=== PATIENT | female | born 1995 | race Caucasian/White ===

== ENCOUNTER 2017-07-26 10:14 | Day surgery (SDC) | payer OTHER ==
[~2017-07-26] VITALS: Ht 160 cm; Wt 73.7 kg
[~2017-07-26 10:14] MED LIST: BENZ100A PO; CALCA500CH PO; CEPH500 PO; CIPR500 PO; CODACE30 PO; CYCL10 PO; EPIPEN 2-P0.3 MG/0.3; HYDACE5 PO; IBUP600 PO; IBUP800 PO; LAMO25; OXYACE5T PO; PENVK500 PO; PHENA100 PO; PRAZ1; PROCODE120 PO; PROM25 PO; Percocet 5-3251 EACH PO; QUET100; SULTRIDS PO; TRAM50 PO; Verotin-Gr Cap1 EACH PO; [UNRECOGNIZED DRUG - OTHER]
== END 2017-07-26 13:50 | disposition home or self-care (01) ==
LOC: ORSCSDS 10:14
PROVIDERS: Obstetrics & Gynecology
PROC: 0UT74ZZ Resection of Bilateral Fallopian Tubes, Percutaneous Endoscopic Approach (ICD-10-PCS; principal; 2017-07-26 11:30)
DX: Z30.2 Encounter for sterilization (principal); N80.3 Endometriosis of pelvic peritoneum; F41.8 Other specified anxiety disorders; Z79.899 Other long term (current) drug therapy
CPT/HCPCS: 88302; J0171; J0690; J1100; J1885; J2250; J2405; J2710; J3010; J7120

== ENCOUNTER 2019-08-31 02:07 | Emergency (ER) | payer OTHER ==
[~2019-08-31] VITALS: Ht 160 cm; Wt 72.6 kg
[~2019-08-31 02:07] MED LIST changes: +Norco 5-325 Ta1 EACH PO; +ONDA4ODT MM; +Pyridium100 MG PO
[2019-08-31] MEDS ORDERED: Veetids 500500 MG PO (04:11)
== END 2019-08-31 04:26 | disposition home or self-care (01) ==
LOC: ER 02:07
DX: K03.81 Cracked tooth (principal); F17.200 Nicotine dependence, unspecified, uncomplicated; Z91.040 Latex allergy status; Z91.030 Bee allergy status
CPT/HCPCS: 96374; 99282-25; J1885

== ENCOUNTER → 2020-08-08 | Outpatient (CLI) | payer OTHER ==
[~2020-08-08] MED LIST changes: +Veetids 500500 MG PO
[2020-08-08 16:43] LABS: BASOPHILS ABSOLUTE AUTO 0.03 K/mm3 (0.00-0.23); BASOPHILS PERCENT AUTO 0 % (0-2); EOSINOPHILS ABSOLUTE AUTO 0.03 K/mm3 (0.00-0.68); EOSINOPHILS PERCENT AUTO 0 % (0-6); Hematocrit 42.4 % (33.0-51.0); Hemoglobin 14.6 g/dL (11.5-16.0); IMMATURE GRAN ABSOLUTE AUTO 0.04 K/mm3 (0.00-0.10); IMMATURE GRAN PERCENT AUTO 0 % (0-1); LYMPHOCYTES ABSOLUTE AUTO 1.24 K/mm3 (0.84-5.20); LYMPHOCYTES PERCENT AUTO 11 % (21-46); MONOCYTES ABSOLUTE AUTO 1.09 K/mm3 (0.16-1.47); MONOCYTES PERCENT AUTO 10 % (4-13); Mean Corpuscular HGB 31.5 pg (26.0-34.0); Mean Corpuscular HGB Conc 34.4 g/dL (31.5-36.5); Mean Corpuscular Volume 92 fL (80-100); Mean Platelet Volume 11.8 fL (9.1-12.4); NEUTROPHILS ABSOLUTE AUTO 9.06 K/mm3 (1.96-9.15); NEUTROPHILS PERCENT AUTO 79 % (41-73); Platelet Count 180 K/mm3 (150-400); RDW Standard Deviation 39.9 fL (35.1-46.3); Red Blood Cell Count 4.63 M/mm3 (3.80-5.20); White Blood Cell Count 11.49 K/mm3 (4.00-11.30)
[2020-08-08 16:53] LABS: Alanine Aminotransfer (ALT/SGP 21 U/L (12-78); Albumin, Blood 4.2 g/dL (3.4-5.0); Alk Phos 53 U/L (40-126); Anion Gap 12 mmol/L (6-16); Aspartate Aminotrans (AST/SGOT 14 U/L (12-37); Bilirubin, Total 0.8 mg/dL (0.1-1.0); Blood Urea Nitrogen 8 mg/dL (8-24); Bun/Creatinine Ratio 9.5 (12.0-20.0); CO2, Blood 26 mmol/L (21-32); Calcium, Blood 9.5 mg/dL (8.5-10.1); Chloride, Blood 103 mmol/L (98-108); Creatinine, Blood 0.84 mg/dL (0.40-1.00); Globulin, Blood 4.2 g/dL (2.2-4.0); Glomerular Filtration Rate >60 (60-); Glucose, Blood 111 mg/dL (70-99); Potassium, Blood 3.3 mmol/L (3.5-5.5); Sodium, Blood 141 mmol/L (136-145); Total Protein, Blood 8.4 g/dL (6.4-8.2)
== END | disposition home or self-care (01) ==
LOC: LAB EV 16:37 → LAB SHORT 16:37 → LAB 16:37
PROVIDERS: Physician Assistant
DX: N10 Acute pyelonephritis (principal)
CPT/HCPCS: 80053; 85025; 87086

== ENCOUNTER 2021-05-18 21:12 | Emergency (ER) | payer OTHER ==
[~2021-05-18] VITALS: Ht 157.5 cm; Wt 71.7 kg
[2021-05-18] MEDS ORDERED: VENL150ER PO (21:33)
[2021-05-18] MEDS ORDERED: Seroquel Xr50 MG PO (21:33)
[2021-05-18] MEDS ORDERED: AMOCLA875 PO (21:45)
== END 2021-05-18 21:58 | disposition home or self-care (01) ==
LOC: ER 21:12
DX: S61.552A Open bite of left wrist, initial encounter (principal); F17.200 Nicotine dependence, unspecified, uncomplicated; Z91.040 Latex allergy status; Z91.030 Bee allergy status; Z79.899 Other long term (current) drug therapy; W54.0XXA Bitten by dog, initial encounter
CPT/HCPCS: A9270

== ENCOUNTER → 2022-09-09 | Outpatient (CLI) | payer OTHER ==
[~2022-09-09] MED LIST changes: +AMOCLA875 PO; +Seroquel Xr50 MG PO; +VENL150ER PO
== END | disposition home or self-care (01) ==
LOC: LAB 11:45 → LAB SHORT 11:45
DX: R10.2 Pelvic and perineal pain (principal)
CPT/HCPCS: 87086

== ENCOUNTER → 2024-01-31 | Outpatient (CLI) | payer OTHER ==
[2024-01-31 15:10] LABS: BASOPHILS ABSOLUTE AUTO 0.03 K/mm3 (0.00-0.23); BASOPHILS PERCENT AUTO 0 % (0-2); EOSINOPHILS ABSOLUTE AUTO 0.04 K/mm3 (0.00-0.68); EOSINOPHILS PERCENT AUTO 0 % (0-6); Hematocrit 39.7 % (33.0-51.0); Hemoglobin 13.2 g/dL (11.5-16.0); IMMATURE GRAN ABSOLUTE AUTO 0.04 K/mm3 (0.00-0.10); IMMATURE GRAN PERCENT AUTO 0 % (0-1); LYMPHOCYTES ABSOLUTE AUTO 1.23 K/mm3 (0.84-5.20); LYMPHOCYTES PERCENT AUTO 10 % (21-46); MONOCYTES ABSOLUTE AUTO 0.84 K/mm3 (0.16-1.47); MONOCYTES PERCENT AUTO 7 % (4-13); Mean Corpuscular HGB 30.6 pg (26.0-34.0); Mean Corpuscular HGB Conc 33.2 g/dL (31.5-36.5); Mean Corpuscular Volume 92 fL (80-100); Mean Platelet Volume 12.1 fL (9.1-12.4); NEUTROPHILS ABSOLUTE AUTO 9.81 K/mm3 (1.96-9.15); NEUTROPHILS PERCENT AUTO 82 % (41-73); Platelet Count 220 K/mm3 (150-400); RDW Coefficient Variation 12.5 % (11.7-14.2); RDW Standard Deviation 42.3 fL (35.1-46.3); Red Blood Cell Count 4.32 M/mm3 (3.80-5.20); White Blood Cell Count 11.99 K/mm3 (4.00-11.30)
[2024-01-31 15:39] LABS: Albumin, Blood 3.3 g/dL (3.4-5.0); Albumin/Globulin Ratio 0.9 (0.8-1.8); Bilirubin, Total 0.5 mg/dL (0.1-1.0); Bun/Creatinine Ratio 5.4 (12.0-20.0); Calcium, Blood 8.5 mg/dL (8.5-10.1); Creatinine, Blood 0.93 mg/dL (0.40-1.00); Globulin, Blood 3.7 g/dL (2.2-4.0); Potassium, Blood 3.7 mmol/L (3.5-5.5)
== END | disposition home or self-care (01) ==
LOC: LAB SHORT 15:00 → LAB 15:00
PROVIDERS: Physician Assistant Medical
DX: N12 Tubulo-interstitial nephritis, not specified as acute or chronic (principal)
CPT/HCPCS: 80053; 85025; 87077; 87086; 87186

== ENCOUNTER → 2024-02-29 | Outpatient (CLI) | payer OTHER ==
[2024-02-29 17:45] LABS: U Amphetamine Screen Not Detected; U Barbituate Screen Not Detected; U Benzodiazapine Screen Not Detected; U Buprenorphine Screen Not Detected; U Cannabinoids Screen DETECTED; U Cocaine Screen Not Detected; U Methadone Screen Not Detected; U Methamphetamine Screen Not Detected; U Opiates Screen Not Detected; U Oxycodone Screen Not Detected; U Phencyclidine Screen Not Detected
== END ==
LOC: LAB SHORT 15:47 → LAB 15:47
PROVIDERS: Physician Assistant
DX: Z51.81 Encounter for therapeutic drug level monitoring (principal); Z79.891 Long term (current) use of opiate analgesic